=== PATIENT | female | born 1995 | race Caucasian/White ===

== ENCOUNTER 2022-07-04 12:50 | Emergency (ER) | payer BC, SELFPAY ==
--- NOTE | 2022-07-04 12:52 | ED.LOWEXIN ---
HPI - Extremity Injury (Lower) General Chief Complaint: Extremity Injury, Lower Stated Complaint: rt knee injury Time Seen by Provider: 07/04/22 12:51 Source: patient Mode of arrival: ambulatory Limitations: no limitations History of Present Illness HPI Narrative: Margo is a 26-year-old female patient presenting to the clinic today with complaints of a right knee injury/pain. 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 States that the area feels tight and she noticed some swelling in her lower extremity. She is scared to walk on it due to feeling as though is going to pop again. She has been taking ibuprofen as needed for pain. Related Data Home Medications Medication Instructions Recorded Confirmed No Home Medications 07/04/22 07/04/22 Allergies Allergy/AdvReac Type Severity Reaction Status Date / Time No Known Allergies Allergy Verified 07/04/22 12:59 Review of Systems Review of Systems: Pertinent positives per HPI. Patient denies any fever, chills, rash, headache, visual changes, dizziness, cough, runny nose, sore throat, shortness of breath, chest pain, palpitations, nausea, vomiting, diarrhea, constipation, abdominal pain, or any urinary issues. PMFSH Comments At the time of my signature, I reviewed and agree with the nursing past medical, surgical, social, and family history. There is no relevant family history pertinent to the patient complaint. Exam Narrative: General: Well-developed, well nourished, in no apparent distress Head: Normocephalic, atraumatic. Cardio: Regular rate and rhythm, s1 and s2 normal, no murmur appreciated. Resp: Clear to auscultation bilaterally, no rhonchi, rales, wheezing or rubs. Musculoskeletal: No deformity, mild lateral swelling to the right knee, tenderness to palpation over the right lateral knee-over the LCL, pain with valgus/varus testing of the right knee over the LCL, pain with full extension of the right knee, grossly normal range of motion, muscle strength strong and equal, peripheral pulse strong, no edema, no cyanosis, normal gait and station Course Course Emergency Course: Portions of this record may have been created with voice recognition software. Level of Care: Express Care Visit Vital Signs Vital signs: Vital signs reviewed MDM - Extremity Injury (Lower) MDM Narrative Medical decision making narrative: At the time of visit patient is resting comfortably in a wheelchair. Has tenderness over the LCL of the right knee. I suspect patient has LCL strain. Recommend hinged knee brace and supportive measures were discussed with the patient she voiced understanding discharge instructions. Differential Diagnosis Differential diagnosis: Likely acute internal derangement of knee and other (Knee fracture, knee sprain) Discharge Plan Discharge Clinical Impression: Sprain of LCL (lateral collateral ligament) of knee Patient Disposition: Home, Self-Care Condition: Stable Instructions: Antibiotic Form, Knee Sprain (ED), Hinged Knee Brace (ED) Additional Instructions: Rest, ice, elevate, and may obi wrap at night Wear hinged knee brace when up walking Tylenol/motrin for pain as discussed. Either is safe for Gradually bear weight No running or sports until healed. Follow up with your PCP if symptoms persist more than 1 week. May need further imaging/PT Prescriptions: No Action No Home Medications Follow-up/Referrals: UNKNOWN,DOCTOR [Primary Care Provider] - Time of Disposition: 13:09 Quality NIHSS Nursing Documentation ED NIHSS nursing documentation: reviewed/agree
[2022-07-04 13:05] VITALS: BP 121/92; PULSE 92; RESP 16; TEMP 36.1; O2SAT 98
== END 2022-07-04 13:20 | disposition home or self-care (01) ==
PROVIDERS: Emergency Provider Nurse Practitioner Family
DX: S83.421A Sprain of lateral collateral ligament of right knee, initial encounter (principal); X50.9XXA Other and unspecified overexertion or strenuous movements or postures, initial encounter
CPT/HCPCS: 99212; G0463

== ENCOUNTER 2023-06-25 10:17 | Emergency (ER) | payer BC, SELFPAY ==
[2023-06-25 10:31] VITALS: BP 120/74; PULSE 83; RESP 16; TEMP 36.9; O2SAT 99
--- NOTE | 2023-06-25 10:41 | ED.SKABFB ---
HPI - Skin/Abscess/Foreign Bdy General Chief complaint: Skin/Abscess/Foreign Body Stated complaint: RASH ON EAR Time Seen by Provider: 06/25/23 10:41 Source: patient Mode of arrival: ambulatory Limitations: no limitations History of Present Illness HPI narrative: 27-year-old female presents with herpes outbreak to left ear for 2 weeks. Patient states that lesions had scabbed and she thought it was improving and then yesterday broke out in new lesions to her left ear. Afebrile. Patient reports she has had herpes outbreak to her ears in the past. Has had testing done by her primary care physician. In the past has taken valacyclovir for her symptoms. Is currently . All systems reviewed and negative except as noted above. Related Data Allergies Allergy/AdvReac Type Severity Reaction Status Date / Time No Known Allergies Allergy Verified 06/25/23 10:41 Review of Systems Review of Systems: CONSTITUTIONAL: Denies fever, chills, or sweats. EYES: Denies visual changes, redness, or discharge. ENT: Denies rhinorrhea, congestion, sore throat, or otalgia. CARDIOVASCULAR: Denies chest pain, palpitations, or edema. RESPIRATORY: Denies cough or dyspnea. GASTROINTESTINAL: Denies abdominal pain, nausea, vomiting, or diarrhea. GENITOURINARY: Denies dysuria or hematuria. SKIN: Denies rash or itching. Reports herpes lesions to left ear. MUSCULOSKELETAL: Denies back pain, joint pain, or myalgia. NEUROLOGIC: Denies headache, numbness, or weakness. PSYCHIATRIC: Denies anxiety or depression. All other systems reviewed are negative, except as documented in HPI. PMFSH Comments At time of signature, agree with nursing past medical, surgical, social and family history. There is no relevant family history pertinent to the presenting complaint. Exam Narrative: GENERAL: This is a well-nourished, well-developed patient, in no apparent distress. HEAD: normocephalic, atraumatic. EYES: PERRL. Sclera clear/white. Vision is grossly intact. EARS: External ears normal NOSE: External nose normal NECK: Neck supple, non-tender without lymphadenopathy, masses or thyromegaly. CARDIOVASCULAR: Regular rate and rhythm without murmurs, gallops, or rubs. RESPIRATORY: Clear to auscultation. Breath sounds equal bilaterally. No wheezes, rales, or rhonchi. SKIN: warm, Dry, intact, good texture and turgor. 2-3 erythematous vesicular lesions to tragus of left external ear. NEURO: awake, alert, and oriented to person, place and time. There were no obvious focal neurologic abnormalities. EXTREMITIES: No joint tenderness, effusion, or edema noted. Course Course Level of Care: Express Care Visit Vital Signs Vital signs: Vital Signs Temperature 36.9 C 06/25/23 10:31 Pulse Rate 83 06/25/23 10:31 Respiratory Rate 16 06/25/23 10:31 Blood Pressure 120/74 06/25/23 10:31 Pulse Oximetry 99 06/25/23 10:31 Temperature 36.9 C 06/25/23 10:31 Pulse Rate 83 06/25/23 10:31 Respiratory Rate 16 06/25/23 10:31 Blood Pressure 120/74 06/25/23 10:31 Pulse Oximetry 99 06/25/23 10:31 Reviewed MDM - Skin/Abscess/Foreign Bdy MDM Narrative Medical decision making narrative: Patient is aware of diagnosis, understands and agrees to treatment plan. Anticipatory guidance given. Patient agrees to follow-up as directed and is aware of reasons to seek care at the emergency department. Portions of this record may have been created with voice recognition software Differential Diagnosis Differential diagnosis: Likely herpes zoster, eczema, impetigo and other (Herpes) Discharge Plan Discharge Clinical Impression: Facial herpetic lesions Patient Disposition: Home, Self-Care Condition: Stable Instructions: Oral Herpes Infection (ED) Additional Instructions: Take medication as prescribed. This medication is safe to take while . Take Tylenol or ibuprofen as needed for pain. Follow-up your primary care
== END 2023-06-25 10:52 | disposition home or self-care (01) ==
PROVIDERS: Emergency Provider Nurse Practitioner Family
DX: B00.9 Herpesviral infection, unspecified (principal)
CPT/HCPCS: 99213; G0463